=== PATIENT | male | born 1990 | race Caucasian/White ===

== ENCOUNTER 2017-06-08 20:11 | Emergency (ER) | payer OTHER ==
[~2017-06-08] VITALS: Ht 185.4 cm; Wt 82.1 kg
[2017-06-08 20:20] VITALS: BP 130/66; PULSE 101; RESP 18; TEMP 99.9; O2SAT 98
[2017-06-08] MEDS ORDERED: OSEL75 PO (20:41)
[2017-06-08] MEDS ORDERED: ZOFR4TAB3 SL (20:41)
--- NOTE | 2017-06-08 20:41 | PD ---
HPI Chief Complaint: Cold / Flu Symptoms Time Seen by Provider: 20:29 Travel History International Travel<30 days: No Contact w/Intl Traveler<30days: No Traveled to known affect area: No History of Present Illness HPI 26-year-old male complains of headache, chills, coughing, vomiting and abdominal cramping. Patient states that his symptoms started this afternoon. Patient states the cough with mild intermittent and productive. Patient has mild sore throat. Patient denies any chest pain or shortness of breath. Patient states that he has intermittent upper abdominal cramping. Patient states that he has nausea with no vomiting or diarrhea. Patient was exposed to another person with flu recently. PFS Past Medical History Medical History: Denies Significant Hx Tetanus Vaccination: < 5 Years Influenza Vaccination: Yes Past Surgical History Surgical History: No Previous Surgery Social History Alcohol Use: Yes (occ) Tobacco Use: No Allergies-Medications (Allergen,Severity, Reaction): Coded Allergies: No Known Allergies (Unverified , 06/08/17) Reported Meds & Prescriptions Reported Meds & Active Scripts Active No Active Prescriptions or Reported Medications Review of Systems General / Constitutional: No: Fever Eyes: No: Visual changes HENT: No: Headaches Cardiovascular: No: Chest Pain or Discomfort Respiratory: Positive: Cough, No: Shortness of Breath Gastrointestinal: Positive: Nausea, Abdominal Pain Genitourinary: No: Dysuria Musculoskeletal: No: Pain Skin: No Rash Neurologic: No: Weakness Psychiatric: No: Depression Endocrine: No: Polydipsia Hematologic/Lymphatic: No: Easy Bruising Physical Exam Narrative GENERAL: Well-nourished, well-developed patient. SKIN: Focused skin assessment warm/dry. HEAD: Normocephalic. EYES: No scleral icterus. No injection or drainage. TM: Clear. Throat: Mouth erythematous. NECK: Supple, trachea midline. No JVD or lymphadenopathy. No meningismus CARDIOVASCULAR: Regular rate and rhythm without murmurs, gallops, or rubs. RESPIRATORY: Breath sounds equal bilaterally. No accessory muscle use. GASTROINTESTINAL: Abdomen soft, non-tender, nondistended. MUSCULOSKELETAL: No cyanosis, or edema. BACK: Nontender without obvious deformity. No CVA tenderness. Data Data Last Documented VS Vital Signs Date Time Temp Pulse Resp B/P (MAP) Pulse Ox O2 Delivery O2 Flow Rate FiO2 06/08/17 20:20 99.9 101 18 130/66 (87) 98 Orders Orders Ondansetron Odt (Zofran Odt) (06/08/17 20:45) Oseltamivir (Tamiflu) (06/08/17 20:45) [facility] Medical Decision Making Medical Screen Exam Complete: Yes Emergency Medical Condition: Yes Differential Diagnosis Differential diagnosis: Viral syndrome, bronchitis, pneumonia, gastroenteritis. Narrative Course 26-year-old male with chills, coughing, nausea, body ache. Diagnosis Primary Impression: Flu syndrome Patient Instructions: General Instructions Additional Instructions: Tamiflu as directed. Zofran as needed for nausea vomiting. Tylenol for fever aching pain. Follow-up with personal physician. Return if worse. Med/Other Pt SpecificInfo: Prescription(s) given Scripts Ondansetron Odt (Zofran Odt) 4 Mg Tab 4 MG SL Q6HR Y for Nausea/Vomiting, #10 TAB 0 Refills Prov: Ethan Mitchell MD 06/08/17 Oseltamivir (Tamiflu) 75 Mg Cap 75 MG PO BID for Mgmt Viral Infection, #10 CAP 0 Refills Prov: Ethan Mitchell MD 06/08/17 Disposition: 01 DISCHARGE HOME Condition: Stable Ethan Mitchell MD Jun 08, 2017 20:41
[2017-06-08] MEDS ORDERED: OSELTAMIVIR PHOSPHATE 75 MG CAP PO ONE (20:45)
[2017-06-08] MEDS ORDERED: ONDANSETRON ODT 4 MG TAB PO ONE (20:45)
== END 2017-06-08 21:27 | disposition home or self-care (01) ==
LOC: PHED 20:11
DX: J11.1 Influenza due to unidentified influenza virus with other respiratory manifestations (principal); R51 Headache; R10.10 Upper abdominal pain, unspecified
CPT/HCPCS: 99284